=== PATIENT | female | born 1955 | race Two or more races ===

== ENCOUNTER 2017-10-01 14:39 | Emergency (ER) | payer MEDICAID ==
[~2017-10-01] VITALS: Ht 154.9 cm; Wt 57.2 kg
[2017-10-01 16:13] VITALS: BP 135/81
[2017-10-01] MEDS ORDERED: methylPREDNISolone SOD SUCC 125 MG/2 ML VL IM ONE (17:15)
[2017-10-01] MEDS ORDERED: diphenhdrAMINE HCL 25 MG CAP PO ONE (17:15)
== END 2017-10-01 17:54 | disposition home or self-care (01) ==
LOC: ER 14:39
DX: L30.9 Dermatitis, unspecified (principal)
CPT/HCPCS: 96372; 99283; J2930